=== PATIENT | female | born 1960 | race African-American/Black ===

== ENCOUNTER 2025-01-17 10:19 | Inpatient (IN) | payer OTHER ==
[2025-01-17 11:31] LABS: VENOUS BASE EXCESS 1.2 mmol/L (-2-2); VENOUS O2 SATURATION 26.5 % (70-80); VENOUS PCO2 52.4 mmHg (38-52); VENOUS PH 7.336 (7.310-7.410)
[2025-01-17 11:36] LABS: HEMATOCRIT 21.9 % (34.1-44.9); HEMOGLOBIN 7.1 g/dL (11.2-15.7); MCHC 32.4 g/dl (32.2-35.5); MEAN CELL VOLUME 109.5 fl (79.4-94.8); MEAN PLT VOLUME 10.6 fl (9.4-12.3); PLATELET COUNT 125 x10^3/uL (182-369); RDW 14.4 % (12.4-16.4)
[2025-01-17 11:52] LABS: CHLORIDE 111 mmol/L (98-107); POTASSIUM 4.7 mmol/L (3.5-5.1); SODIUM 145 mmol/L (136-145)
[2025-01-17 11:52] LABS: INR 1.02 (0.83-1.09); PROTHROMBIN TIME (PATIENT) 11.1 SEC (9.7-13.0)
[2025-01-17 11:55] LABS: ALBUMIN 1.8 g/dl (3.4-5.0); ANION GAP 5 mmol/L (4-13); BLOOD UREA NITROGEN 10.7 mg/dL (7-18); CALCIUM 8.7 mg/dL (8.5-10.1); CO2 30 mmol/L (21-32); GLUCOSE,RANDOM 95 mg/dL (74-106); MAGNESIUM 1.8 mg/dL (1.8-2.4)
[2025-01-17 11:58] LABS: CREATININE 1.2 mg/dL (0.55-1.3); SGOT/AST 120 U/L (15-37); SGPT/ALT 50 U/L (13-61)
[2025-01-17 11:59] LABS: BILIRUBIN,TOTAL 0.4 mg/dL (0.2-1); PHOSPHOROUS 4.7 mg/dL (2.5-4.9); TOT PROT 5.1 g/dl (6.4-8.2)
[2025-01-17 12:00] LABS: ALK PHOS 180 U/L (45-117)
[2025-01-17 12:06] LABS: LACTIC ACID 2.2 mmol/L (0.4-2.0)
[2025-01-17] MEDS ORDERED: PANTOPRAZOLE SODIUM 40 MG VIAL ONE (12:17)
[2025-01-17] MEDS: LACTATED RINGERS SOLUTION 1000 ML INFUS.BAG IV ONE (12:26)
[2025-01-17] MEDS: PANTOPRAZOLE SODIUM 40 MG VIAL IVPUSH ONE (12:26)
[2025-01-17] MEDS: FOLIC ACID INJECTION - 1 MG, THIAMINE HCL 100 MG, MULTIVIT INJECTION ADULT 10 ML in SOD... IVPB ONE ×2 (12:27→14:26)
[2025-01-17 13:49] LABS: EPI CELLS 25 /uL (0-25.1); HYALINE CASTS 3 /uL (0-3.1); URINE APPEARANCE CLOUDY; URINE BACTERIA >9,000 /uL (0-1359); URINE BILIRUBIN NEGATIVE (NEGATIVE); URINE COLOR YELLOW; URINE GLUCOSE (UA) NEGATIVE (NEGATIVE); URINE KETONE NEGATIVE (NEGATIVE); URINE LEUK ESTERASE 3+ (NEGATIVE); URINE NITRITE POSITIVE (NEGATIVE); URINE PROTEIN NEGATIVE (NEGATIVE); URINE RBC 9 /uL (0-23.9); URINE UROBILINOGEN 0.2 mg/dL (0.2-1.0); URINE WBC 744 /uL (0-25.8)
[2025-01-17] MEDS ORDERED: CEFTRIAXONE 1 GM/50 ML BAG ONE (14:22)
[2025-01-17] MEDS: CEFTRIAXONE 1,000 MG in DEXTROSE 5%-WATER - 50 ML IVPB ONE (14:26)
[2025-01-17] MEDS ORDERED: PANTOPRAZOLE SODIUM 40 MG VIAL IVPUSH SCH (19:15)
[2025-01-17] MEDS: PANTOPRAZOLE SODIUM 40 MG VIAL IVPUSH SCH (21:34)
[2025-01-17] MEDS: levETIRAcetam 500 MG TABLET (FP) PO SCH (21:34)
[2025-01-18 06:39] LABS: HEMATOCRIT 23.8 % (34.1-44.9); HEMOGLOBIN 7.9 g/dL (11.2-15.7); MCHC 33.2 g/dl (32.2-35.5); MEAN CELL VOLUME 101.7 fl (79.4-94.8); MEAN PLT VOLUME 10.4 fl (9.4-12.3); PLATELET COUNT 126 x10^3/uL (182-369); RDW 19.8 % (12.4-16.4)
[2025-01-18 06:45] LABS: POTASSIUM 3.6 mmol/L (3.5-5.1)
[2025-01-18 06:50] LABS: ALBUMIN 1.7 g/dl (3.4-5.0); BLOOD UREA NITROGEN 8.1 mg/dL (7-18); MAGNESIUM 1.4 mg/dL (1.8-2.4)
[2025-01-18 06:53] LABS: CREATININE 0.7 mg/dL (0.55-1.3)
[2025-01-18 06:55] LABS: BILIRUBIN,TOTAL 0.5 mg/dL (0.2-1); TOT PROT 4.3 g/dl (6.4-8.2)
[2025-01-18] MEDS: MAGNESIUM SULFATE IN WATER 2 GM/50 ML IVPB IVPB ONE (09:13)
[2025-01-18] MEDS ORDERED: CEFTRIAXONE 1 G/50 ML PREMIX 50 ML IVPB SCH (10:00)
[2025-01-18] MEDS: CEFTRIAXONE 1 GM in DEXTROSE 5%-WATER - 50 ML IVPB SCH (10:13)
[2025-01-18] MEDS: POTASSIUM CHLORIDE TABS 20 MEQ TABLET.ER (FP) PO ONE (13:13)
[2025-01-18] MEDS: DEXTROSE 5%-0.45% SALINE 1,000 ML IV SCH (16:04)
[2025-01-18 17:36] LABS: HEPATITIS B SURF AG NON-MATERN NON-REACTIVE (NONREACTIVE)
[2025-01-18 18:05] LABS: HCV DIAGNOSTIC IN-HOUSE W/RFLX NON-REACTIVE (NONREACTIVE)
[2025-01-18] MEDS: ACETAMINOPHEN 325 MG TABLET (FP) PO PRN (21:53)
[2025-01-19 07:49] LABS: ABSOLUTE IMMATURE GRANULOCYTES 0.02 x10^3/uL (0.0-0.031); BASOPHILS # 0.01 x10^3/uL (0.01-0.08); EOSINOPHIL % 1.1 % (0.7-5.8); EOSINOPHILS # 0.06 x10^3/uL (0.04-0.36); HEMATOCRIT 32.3 % (34.1-44.9); HEMOGLOBIN 10.8 g/dL (11.2-15.7); MCHC 33.4 g/dl (32.2-35.5); MEAN CELL VOLUME 102.2 fl (79.4-94.8); MEAN PLT VOLUME 11.2 fl (9.4-12.3); MONOCYTE # 0.34 x10^3/uL (0.24-0.86); MONOCYTE % 6.5 % (4.7-12.5); PLATELET COUNT 145 x10^3/uL (182-369); RDW 17.6 % (12.4-16.4)
[2025-01-19 07:50] LABS: HEMATOCRIT 33.9 % (34.1-44.9); HEMOGLOBIN 11.3 g/dL (11.2-15.7); MCHC 33.3 g/dl (32.2-35.5); MEAN CELL VOLUME 102.4 fl (79.4-94.8); PLATELET COUNT 150 x10^3/uL (182-369); RDW 17.7 % (12.4-16.4)
[2025-01-19 08:04] LABS: POTASSIUM 3.8 mmol/L (3.5-5.1)
[2025-01-19 08:17] LABS: ALBUMIN 1.7 g/dl (3.4-5.0); BLOOD UREA NITROGEN 6.5 mg/dL (7-18); CALCIUM 8.2 mg/dL (8.5-10.1); MAGNESIUM 1.8 mg/dL (1.8-2.4)
[2025-01-19 08:18] LABS: INR 0.95 (0.83-1.09); PROTHROMBIN TIME (PATIENT) 10.5 SEC (9.7-13.0)
[2025-01-19 08:20] LABS: PHOSPHOROUS 3.6 mg/dL (2.5-4.9)
[2025-01-19 08:21] LABS: BILIRUBIN,TOTAL 0.4 mg/dL (0.2-1); CREATININE 0.6 mg/dL (0.55-1.3); TOT PROT 4.8 g/dl (6.4-8.2)
[2025-01-19] MEDS: PANTOPRAZOLE 40 MG TABLET PO SCH (10:49)
[2025-01-19] MEDS: ALPRAZolam 0.25 MG TABLET PO ONE (12:09)
[2025-01-19 12:38] LABS: Reticulocyte % 1.48 % (0.5-1.7)
[2025-01-19 12:41] LABS: ABSOLUTE IMMATURE GRANULOCYTES 0.03 x10^3/uL (0.0-0.031); BASOPHILS # 0.02 x10^3/uL (0.01-0.08); EOSINOPHIL % 0.9 % (0.7-5.8); EOSINOPHILS # 0.05 x10^3/uL (0.04-0.36); HEMATOCRIT 27.3 % (34.1-44.9); HEMOGLOBIN 8.9 g/dL (11.2-15.7); MCHC 32.6 g/dl (32.2-35.5); MEAN CELL VOLUME 103.8 fl (79.4-94.8); MEAN PLT VOLUME 10.6 fl (9.4-12.3); MONOCYTE # 0.49 x10^3/uL (0.24-0.86); MONOCYTE % 8.9 % (4.7-12.5); PLATELET COUNT 131 x10^3/uL (182-369)
[2025-01-19] MEDS: ACETAMINOPHEN 1000 MG/100 ML BAG IVPB ONE (19:59)
[2025-01-19] MEDS: BUDESONIDE/FORMETEROL FUMARATE 160/4.5 mcg INHALER IH SCH (21:53)
[2025-01-20] MEDS: ALPRAZolam 0.25 MG TABLET PO PRN (01:19)
[2025-01-20 08:09] LABS: HEMATOCRIT 24.3 % (34.1-44.9); HEMOGLOBIN 8.2 g/dL (11.2-15.7); MCHC 33.7 g/dl (32.2-35.5); MEAN CELL VOLUME 101.3 fl (79.4-94.8); MEAN PLT VOLUME 10.8 fl (9.4-12.3); PLATELET COUNT 125 x10^3/uL (182-369); RDW 16.5 % (12.4-16.4)
[2025-01-20 08:28] LABS: POTASSIUM 3.5 mmol/L (3.5-5.1)
[2025-01-20 08:44] LABS: ALBUMIN 1.7 g/dl (3.4-5.0); BLOOD UREA NITROGEN 4.2 mg/dL (7-18); CALCIUM 8.1 mg/dL (8.5-10.1)
[2025-01-20 08:45] LABS: BILIRUBIN,TOTAL 0.4 mg/dL (0.2-1); CREATININE 0.5 mg/dL (0.55-1.3); MAGNESIUM 1.5 mg/dL (1.8-2.4)
[2025-01-20 08:46] LABS: TOT PROT 4.9 g/dl (6.4-8.2)
[2025-01-20 08:47] LABS: PHOSPHOROUS 3.2 mg/dL (2.5-4.9)
[2025-01-20] MEDS: THIAMINE 100 MG TABLET PO SCH (09:46)
[2025-01-20] MEDS: BICTEGRAV/EMTRICIT/TENOFOV (BIKTARVY) 50-200-25 MG TABLET PO SCH (09:46)
[2025-01-20] MEDS: MAGNESIUM 2GM/50ML STERILE WATER IVPB IVPB ONE (17:11)
[2025-01-21 07:52] LABS: HEMATOCRIT 24.7 % (34.1-44.9); HEMOGLOBIN 8.5 g/dL (11.2-15.7); MCHC 34.4 g/dl (32.2-35.5); MEAN CELL VOLUME 100.4 fl (79.4-94.8); MEAN PLT VOLUME 11.4 fl (9.4-12.3); PLATELET COUNT 133 x10^3/uL (182-369); RDW 15.6 % (12.4-16.4)
[2025-01-21 08:00] LABS: POTASSIUM 3.4 mmol/L (3.5-5.1)
[2025-01-21 08:05] LABS: CALCIUM 7.7 mg/dL (8.5-10.1)
[2025-01-21 08:06] LABS: ALBUMIN 1.6 g/dl (3.4-5.0); MAGNESIUM 1.9 mg/dL (1.8-2.4)
[2025-01-21] MEDS ORDERED: POTASSIUM CHLORIDE ORAL LIQUID 20 MEQ/15 ML PO ONE (08:06)
[2025-01-21 08:08] LABS: CREATININE 0.4 mg/dL (0.55-1.3); PHOSPHOROUS 3.5 mg/dL (2.5-4.9)
[2025-01-21 08:09] LABS: BILIRUBIN,TOTAL 0.4 mg/dL (0.2-1); TOT PROT 4.9 g/dl (6.4-8.2)
[2025-01-21] MEDS ORDERED: POTASSIUM CHLORIDE 40 MEQ in SODIUM CHLORIDE 1,000 ML IV SCH (09:00)
[2025-01-21] MEDS: THIAMINE HCL 200 MG/2 ML VIAL IVPB SCH (10:45)
[2025-01-21] MEDS: D5-1/2NS+40 MEQ KCL - 40 MEQ/1,000 ML INFUS.BAG IV SCH (11:11)
[2025-01-21] MEDS: ALPRAZolam 0.25 MG TABLET PO SCH (21:00)
[2025-01-22 07:36] LABS: HEMATOCRIT 23.8 % (34.1-44.9); HEMOGLOBIN 8.1 g/dL (11.2-15.7); MEAN CELL VOLUME 100.4 fl (79.4-94.8); MEAN PLT VOLUME 10.4 fl (9.4-12.3); PLATELET COUNT 157 x10^3/uL (182-369); RDW 15.6 % (12.4-16.4)
[2025-01-22 08:08] LABS: CHLORIDE 111 mmol/L (98-107); POTASSIUM 4.6 mmol/L (3.5-5.1); SODIUM 141 mmol/L (136-145)
[2025-01-22 08:15] LABS: ALBUMIN 1.6 g/dl (3.4-5.0); ANION GAP 3 mmol/L (4-13); CALCIUM 8.3 mg/dL (8.5-10.1); CO2 26 mmol/L (21-32); GLUCOSE,RANDOM 132 mg/dL (74-106); MAGNESIUM 1.7 mg/dL (1.8-2.4)
[2025-01-22 08:17] LABS: ALK PHOS 176 U/L (45-117); CREATININE 0.4 mg/dL (0.55-1.3); SGOT/AST 61 U/L (15-37); SGPT/ALT 32 U/L (13-61)
[2025-01-22 08:18] LABS: BILIRUBIN,TOTAL 0.4 mg/dL (0.2-1); PHOSPHOROUS 3.6 mg/dL (2.5-4.9)
[2025-01-22 08:20] LABS: TOT PROT 4.9 g/dl (6.4-8.2)
[2025-01-22 08:29] LABS: BLOOD UREA NITROGEN 2.2 mg/dL (7-18)
[2025-01-22] MEDS: CEFTRIAXONE 1 GM in DEXTROSE 5%-WATER - 50 ML IVPB SCH (18:13)
[2025-01-22] MEDS: MAGNESIUM 2GM/50ML STERILE WATER IVPB IVPB ONE (18:13)
[2025-01-23 08:00] LABS: POTASSIUM 4.5 mmol/L (3.5-5.1)
[2025-01-23 08:03] LABS: HEMATOCRIT 26.7 % (34.1-44.9); HEMOGLOBIN 8.7 g/dL (11.2-15.7); MCHC 32.6 g/dl (32.2-35.5); MEAN CELL VOLUME 103.5 fl (79.4-94.8); MEAN PLT VOLUME 10.7 fl (9.4-12.3); PLATELET COUNT 188 x10^3/uL (182-369); RDW 15.6 % (12.4-16.4)
[2025-01-23 08:13] LABS: ALBUMIN 1.7 g/dl (3.4-5.0); BLOOD UREA NITROGEN 5.4 mg/dL (7-18); CALCIUM 8.7 mg/dL (8.5-10.1); MAGNESIUM 2.1 mg/dL (1.8-2.4)
[2025-01-23 08:17] LABS: CREATININE 0.5 mg/dL (0.55-1.3); PHOSPHOROUS 4.5 mg/dL (2.5-4.9)
[2025-01-23 08:18] LABS: BILIRUBIN,TOTAL 0.4 mg/dL (0.2-1); TOT PROT 5.4 g/dl (6.4-8.2)
[2025-01-23] MEDS: metoPROLOL SUCCINATE 25 MG TAB.SR.24H (FP) PO SCH (09:28)
[2025-01-23 23:54] VITALS: BMI 20.2
[2025-01-25] MEDS ORDERED: ALPRAZolam 0.25 MG TABLET PO PRN (13:08)
[2025-01-25 23:20] VITALS: RESP 20
[2025-01-26 06:24] VITALS: PULSE 100
[2025-01-26 14:59] VITALS: BP 110/76; TEMP 98.2
== END 2025-01-26 16:44 | disposition home or self-care (01) | DRG 812 ==
LOC: JER 10:19 → JERBED 15:14 → J4W 20:39
PROVIDERS: ADMIT Student in an Organized Health Care Education/Training Program; ATTEND Internal Medicine
PROC: 30233N1 Transfusion of Nonautologous Red Blood Cells into Peripheral Vein, Percutaneous Approach (ICD-10-PCS; principal; 2025-01-17)
DX: D64.9 Anemia, unspecified (principal); N39.0 Urinary tract infection, site not specified; F10.239 Alcohol dependence with withdrawal, unspecified; D61.818 Other pancytopenia; Z21 Asymptomatic human immunodeficiency virus [HIV] infection status; K70.10 Alcoholic hepatitis without ascites; K70.30 Alcoholic cirrhosis of liver without ascites; B96.20 Unspecified Escherichia coli [E. coli] as the cause of diseases classified elsewhere; B95.5 Unspecified streptococcus as the cause of diseases classified elsewhere; F32.A Depression, unspecified; E78.5 Hyperlipidemia, unspecified
CPT/HCPCS: 0241U-QW; 36415; 36430; 70450-TC; 71045-TC-FY; 76700-TC; 80048; 80053; 81003; 82010; 82105; 82140; 82272; 82550; 82553; 82607; 82728; 82746; 82803; 82977; 83540; 83550; 83605; 83690; 83735; 84100; 84443; 84484; 85025; 85027; 85610; 85730; 86359; 86360; 86705; 86803; 86850; 86900; 86901; 86922; 87040; 87086; 87340; 87517; 87536; 93005; 93010; 94010; 97116-GP; 97162-GP; 99285-25; P9038; P9058